=== PATIENT | female | born 1970 | race African-American/Black ===

== ENCOUNTER 2019-11-12 12:33 | Emergency (ER) | payer OTHER ==
[~2019-11-12] VITALS: Ht 172.7 cm; Wt 74.8 kg
[2019-11-12 13:23] LABS: BASOPHILS % 0.9 % (0.0-2.0); EOSINOPHILS % 0.2 % (0.0-5.0); HEMATOCRIT. 40.1 % (36.0-48.0); HEMOGLOBIN. 13.2 g/dL (12.0-16.0); LYMPHOCYTES % 45.9 % (20.0-50.0); MEAN CORPUSCULAR HEMOGLOBIN 28.6 pg (28.0-32.0); MEAN CORPUSCULAR VOLUME 86.6 fL (81.0-99.0); MEAN PLATELET VOLUME 8.1 fl (7.4-10.4); MONOCYTES % 7.4 % (2.0-8.0); NEUTROPHILS % 45.6 % (40.0-76.0); PLATELET 267 x1000/uL (130-400); RED BLOOD CELL COUNT 4.63 mill/uL (4.2-5.4); RED CELL DISTRIBUTION WIDTH 17.2 % (11.6-14.6)
[2019-11-12 13:29] LABS: CHLORIDE 104 mEq/L (98-107)
[2019-11-12 13:31] LABS: PROTHROMBIN TIME 10.7 sec (9.6-11.0)
[2019-11-12] MEDS ORDERED: SODIUM CHLORIDE 0.9% 1,000 ML IV ONE (14:30)
[2019-11-12] MEDS ORDERED: IOHEXOL-350 100 ML BOTTLE ONE (15:14)
[2019-11-12 16:27] VITALS: BP 152/111
== END 2019-11-12 16:34 | disposition home or self-care (01) ==
LOC: ER 13:04
DX: R07.89 Other chest pain (principal); I16.0 Hypertensive urgency
CPT/HCPCS: 36415; 70498; 71045; 80053; 83880; 84484; 85025; 85610; 93005; 99285; J7030; Q9967